=== PATIENT | male | born 1945 | race Caucasian/White ===

== ENCOUNTER 2024-01-14 05:06 | Observation (INO) ==
--- NOTE | 2023-12-20 11:12 | PAT Medication Instructions ---
Medication Instructions Date of Service December 20, 2023 Home Medications aspirin 81 mg tablet,delayed release 81 mg PO HS hydrochlorothiazide 12.5 mg tablet 12.5 mg PO QAM levothyroxine 25 mcg tablet (Synthroid) 25 mcg PO QAM potassium chloride 10 mEq tablet,extended release 10 meq PO QAM simvastatin 10 mg tablet 5 mg PO QAM escitalopram oxalate 10 mg tablet (Lexapro) 10 mg PO HS amlodipine 2.5 mg tablet 2.5 mg PO HS clonazepam 0.25 mg disintegrating tablet 0.25 mg PO QAM fluticasone propionate 50 mcg/actuation nasal spray,suspension 2 spray intranasal BID PRN Congestion DO NOT take the morning of surgery hydrochlorothiazide 12.5 mg tablet 12.5 mg PO QAM potassium chloride 10 mEq tablet,extended release 10 meq PO QAM Take morning of surgery With a small sip of water, OTHERWISE NOTHING TO EAT OR DRINK AFTER MIDNIGHT: levothyroxine 25 mcg tablet (Synthroid) 25 mcg PO QAM simvastatin 10 mg tablet 5 mg PO QAM clonazepam 0.25 mg disintegrating tablet 0.25 mg PO QAM fluticasone propionate 50 mcg/actuation nasal spray,suspension 2 spray intranasal BID PRN Congestion (if needed) Take evening before surgery aspirin 81 mg tablet,delayed release 81 mg PO HS (unless surgeon directed otherwise) escitalopram oxalate 10 mg tablet (Lexapro) 10 mg PO HS amlodipine 2.5 mg tablet 2.5 mg PO HS fluticasone propionate 50 mcg/actuation nasal spray,suspension 2 spray intranasal BID PRN Congestion (if needed) Other Notes If you have any questions please call us at [phone] or [phone] or [phone] or [phone]
--- NOTE | 2023-12-25 10:23 | Anesthesiology Consultation ---
Date of Service December 25, 2023 Assessment & Plan (1) Encounter for pre-operative examination: - will request copy of Dr. Snyder office visit 12/2023. Chart Review Chart Review: Pending: Refer to Additional Notes / Consult section and Patient seen in Pre Admission Testing Teaching & Discussion Pre-Anesthesia Teaching/Discussion Notes: Instructed NPO after midnight before surgery, except medications with 15 cc of water. Medication instructions provided according to the PAT guidelines. History Surgery Operation Date: 01/14/24 10:40 Proposed Procedures p Right Total Hip Arthroplasty - Luke Márquez MD Height/Weight Height: 6 ft Weight: 85.9 kg Allergies Allergy/AdvReac Type Severity Reaction Status Date / Time No Known Allergies Allergy Verified 12/19/23 12:30 Medications Home Medications Medication Instructions Recorded Confirmed Last Taken aspirin 81 mg tablet,delayed 81 mg PO HS 10/27/21 12/19/23 12/04/22 release hydrochlorothiazide 12.5 mg tablet 12.5 mg PO QAM 10/27/21 12/19/23 12/06/22 levothyroxine 25 mcg tablet 25 mcg PO QAM 10/27/21 12/19/23 12/06/22 (Synthroid) potassium chloride 10 mEq 10 meq PO QAM 10/27/21 12/19/23 12/06/22 tablet,extended release simvastatin 10 mg tablet 5 mg PO QAM 10/27/21 12/19/23 12/06/22 escitalopram oxalate 10 mg tablet 10 mg PO HS 03/22/22 12/19/23 12/04/22 (Lexapro) amlodipine 2.5 mg tablet 2.5 mg PO HS 12/13/23 12/19/23 Unknown clonazepam 0.25 mg disintegrating 0.25 mg PO QAM 12/13/23 12/19/23 Unknown tablet fluticasone propionate 50 2 spray intranasal BID PRN 12/19/23 12/19/23 Unknown mcg/actuation nasal Congestion spray,suspension Past Medical History Medical History (Updated 12/25/23 @ 10:29 by Marianela Souza PA-C) Acid reflux hx of, no meds Anxiety History of COVID-19 06/2021 - congestion, loss of smell; resolved History of kidney stones 1980s HLD (hyperlipidemia) HTN (hypertension) controlled, stable per pt Hypothyroidism Sleep apnea CPAP-occasional use Patient denies h/o stroke, seizures, heart attack, heart failure, DM, blood clots/DVTs or blood transfusions. Exercise / Class Metabolic Activity II 4-5 Yardwork/Stairs/Walk up hill (denies chest discomfort or shortness of breath with 1 FOS) Past Family History Family History Father Family history of reaction to anesthesia (potential) stroke during bladder surgery, pt's father was in 80's, Other No family history of adverse response to anesthesia Past Surgical History Surgical History History of cataract surgery bilat History of colonoscopy History of cystoscopy with stone extraction History of thumb surgery mult Hx of prostate biopsy benign S/P epidural steroid injection Past Anesthesia History No Hx of Anesthesia Complications and Other (father-stroke under general anesthesia) History of PONV No Hx of PONV and No Hx of Motion Sickness Social History Smoking Status: Never smoker Do You Dip or Chew Tobacco: No Hx Alcohol Use: Yes Alcohol type: wine alcohol intake frequency: 0-2 drinks per day Hx Substance Use: No substance use type: does not use Review of Systems Patient denies chest pain, shortness of breath, dyspnea on exertion, fever, chills, cough, wheezing, or palpitations. Physical Exam Vital Signs Vitals BP 131/86 P 70 TEMP 97.6 SP02 98% on RA RESP 18 Physical Patient resting comfortably in chair in no acute distress, alert and oriented, responding appropriately throughout visit Full cervical extension range of motion without pain TMD 3.5 finger breadths Mallampati Score 2 Dentition: several caps/crowns; denies chipped or loose teeth, implants or bridges Lungs: normal respiratory effort. Good air movement, clear throughout to auscultation, no adventitious breath sounds Cardiac: regular rate and rhythm, no murmurs noted Carotid arteries: negative bruit bilat Lab Results Anesthesia Preop Results Results Anesthesia Widget: WBC 5.19 K/ul (4.8-10.8) 12/25/23 Hgb 15.9 g/dl (14.0-18.0) 12/25/23 Hct 46.5 % (42.0-52.0) 12/25/23 Plt 197 K/uL (130-400) 12/25/23 Na Pending 12/25/23 K Pending 12/25/23 Cl Pending 12/25/23 CO2 Pending 12/25/23 BUN Pending 12/25/23 Creat Pending 12/25/23 Glucose Level Pending 12/25/23 PT 10.6 Seconds (9.0-12.0) 12/25/23 PTT 28 Seconds (21-31) 12/25/23 INR 1.0 (0.9-1.1) 12/25/23 Blood Type O Positive 12/25/23 Antibody Screen NEGATIVE 12/25/23 Testing Electrocardiogram Date: 12/25/23 NSR, rate 65 bpm Incomplete RBBB Chest X-Ray Date: 12/25/23 No acute cardiopulmonary findings.
--- NOTE | 2024-01-11 11:19 | History & Physical Report ---
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 They failed conservative treatment would like to have his hip replaced. Plan: We discussed treatment options with the patient including further conservative versus prevention. He is ready to have his hip fixed. I will go proceed with right total hip replacement. The risks and benefits of this procedure explained the patient include but not limited to DVT PE infection neurological and vascular bleeding palm pain limb range of motion test is fairly of symptoms incomplete relief of symptoms dislocation excetra. The patient understands and desires to proceed. Informed consent was obtained. His bone looks fairly osteopenic with a fairly wide canal. Will have a cemented stem available if were unable to get fixation with a uncemented stem. Plan on DVT prophylaxis including thigh-high teds, SCDs, and a baby aspirin twice a day. Will plan on staying overnight but hopeful discharge to home using the [facility]. History of Present Illness Chief Complaint: . Right hip and groin pain. Primary Care Provider: Tyesha Snyder DO . 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 He is about a 4 to 5-month history of increasing right hip pain discomfort that is gradually gotten worse over time. No particular injury. He was playing golf when this countable started. He is seen Dr. Armendariz and went through a course of therapy which seemed to help a little bit but is continued be limited by his hip pain. He is not been able to stay as active as he is like to do his groin pain. It radiates down to his side. No numbness. He would like to have his hip fixed. Allergies Allergy/AdvReac Type Severity Reaction Status Date / Time No Known Allergies Allergy Verified 12/19/23 12:30 Home Medications Medication Instructions Recorded Confirmed Type aspirin 81 mg tablet,delayed 81 mg PO HS 10/27/21 12/19/23 History release hydrochlorothiazide 12.5 mg tablet 12.5 mg PO QAM 10/27/21 12/19/23 History levothyroxine 25 mcg tablet 25 mcg PO QAM 10/27/21 12/19/23 History (Synthroid) potassium chloride 10 mEq 10 meq PO QAM 10/27/21 12/19/23 History tablet,extended release simvastatin 10 mg tablet 5 mg PO QAM 10/27/21 12/19/23 History escitalopram oxalate 10 mg tablet 10 mg PO HS 03/22/22 12/19/23 History (Lexapro) amlodipine 2.5 mg tablet 2.5 mg PO HS 12/13/23 12/19/23 History clonazepam 0.25 mg disintegrating 0.25 mg PO QAM 12/13/23 12/19/23 History tablet fluticasone propionate 50 2 spray intranasal BID PRN 12/19/23 12/19/23 History mcg/actuation nasal Congestion spray,suspension Past Med/Surg History Medical History Acid reflux hx of, no meds Sleep apnea CPAP-occasional use History of kidney stones 1980s Hypothyroidism Anxiety HLD (hyperlipidemia) HTN (hypertension) controlled, stable per pt History of COVID-19 06/2021 - congestion, loss of smell; resolved Surgical History S/P epidural steroid injection Hx of prostate biopsy benign History of cataract surgery bilat History of cystoscopy with stone extraction History of thumb surgery mult History of colonoscopy Family History Father Family history of reaction to anesthesia (potential) stroke during bladder surgery, pt's father was in 80's, Other No family history of adverse response to anesthesia Social History Smoking Status: Never smoker Second Hand Exposure: No; Do You Dip or Chew Tobacco: No; Hx Alcohol Use: Yes Alcohol type: wine Hx Substance Use: No Preferred Language: Albanian Communication Ability: Effective 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 Physical Exam . Physical examination reveals a pleasant healthy appearing middle-aged male. Looks younger than his stated age. Examination of the right hip reveal patient walks with a slightly antalgic gait. Leg lengths appear pretty equal. He does have limited hip motion with internal rotation to neutral which recreates pain. Negative straight leg raise. He is neurologically intact. Constitutional WD/WN, vitals as above Neck trachea midline, no thyromegaly Respiratory normal respiratory effort, lungs clear to auscultation Cardiovascular RRR, no murmur, no edema Gastrointestinal (Abdomen) normal bowel sounds, soft, nontender, no hepatosplenomegaly Results & Data Results & Data Laboratory Results . Diagnostic Findings . X-rays of the right hip were reviewed. Shows advanced hip arthritis. He is got near complete loss of the superior joint space. Is got cam type impingement. A little bit of osteopenia. PG Care Time/CCT Total # of Minutes Spent Total Time Spent with Patient: Total time spent is greater than 50% in coordination of care (as documented) at patient's floor/unit and/or counseling patient: Coding Level of Care Code None Diagnoses Arthritis of right hip M16.11
[2024-01-14] MEDS: ACETAMINOPHEN 500 MG TAB PO SCH ×2 (05:35→13:45)
[2024-01-14] MEDS: CeleBREX 200 MG CAP PO SCH (05:36)
[2024-01-14] MEDS: FAMOTIDINE 20 MG TAB PO SCH (05:36)
[2024-01-14] MEDS: LR 60ML/HR IV SCH (05:36)
[2024-01-14] MEDS: dexAMETHasone**PF** 10 MG/ML VIAL IV SCH (05:36)
[2024-01-14] MEDS: METOCLOPRAMIDE HCL 10 MG TABLET PO SCH (05:36)
[2024-01-14] MEDS: LR 500ML BOLUS, THEN 15ML/HR IV SCH (05:40)
[2024-01-14] MEDS ORDERED: BUPIVACAINE 0.5 % 5 MG/1 ML PF 10ML VIAL ONE (06:18)
[2024-01-14] MEDS ORDERED: fentaNYL citrate PF 100 MCG/2 ML VIAL ONE (06:38)
[2024-01-14] MEDS ORDERED: PROPOFOL IV EMULSION 10 MG/ML 20 ML VIAL IV ONE ×3 (06:39→06:40)
[2024-01-14] MEDS ORDERED: MIDAZOLAM HCL 1 MG/ML 2ML VIAL ONE ×2 (06:39→06:46)
[2024-01-14] MEDS ORDERED: ePHEDrine sulfate 50 MG/ML AMP ONE ×2 (06:40→07:42)
[2024-01-14] MEDS ORDERED: LIDOCAINE 2% 2 ML VIAL/AMP(20MG/ML) INFIL ONE (06:44)
[2024-01-14] MEDS ORDERED: ATROPINE SULFATE 0.1 MG/ML 10ML SYR IV PRN (06:45)
[2024-01-14] MEDS ORDERED: fentaNYL citrate PF 100 MCG/2 ML VIAL IV PRN (06:45)
[2024-01-14] MEDS ORDERED: ePHEDrine sulfate 50 MG/ML AMP IV PRN (06:45)
[2024-01-14] MEDS ORDERED: ONDANSETRON INJ 2 MG/ML 2 ML VIAL IV PRN ×2 (06:45→10:11)
[2024-01-14] MEDS: TRANEXAMIC ACID 1,000 MG **IV Pre-op IV SCH (06:46)
--- NOTE | 2024-01-14 06:51 | History & Physical Bridge Note ---
Date of Service January 14, 2024 History & Physical Bridge Note I have examined the patient, reviewed the History & Physical and in the interval since the performance of the History & Physical I have noted the following changes of clinical significance: no changes noted
[2024-01-14] MEDS: ceFAZolin 2000MG 2,000 MG/15 ML SYR IV SCH ×2 (06:57→14:30)
--- OUTSIDE RECORDS SUMMARY | 2024-01-14 07:01 | External Medical Summary | Continuity of Care Document ---
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 Name Role Phone Tyesha Snyder Primary Care Physician [phone] Encounter [facility] [id number] Date(s): 01/01/24 - 01/01/[address] [place] [address], [facility] [address] [place] [address] [phone] Encounter Diagnosis Elevated cholesterol(Discharge Diagnosis) - 01/01/24 ASHOK (generalized anxiety disorder)(Discharge Diagnosis) - 01/01/24 Hypertension(Discharge Diagnosis) - 01/01/24 Hypothyroid(Discharge Diagnosis) - 01/01/24 Right hip pain(Discharge Diagnosis) - 01/01/24 Pure hypercholesterolemia, unspecified(Final) - Generalized anxiety disorder(Final) - Essential (primary) hypertension(Final) - Hypothyroidism, unspecified(Final) - Pain in right hip(Final) - Discharge Disposition: Home or Self Care Attending Physician: DO Snyder Kristen M Referring Physician: DO Snyder Kristen M Allergies, Adverse Reactions, Alerts No Known Allergies Assessment and Plan Extracted from: Title:Office Visit Note Author:DO Snyder Kriste n M Date:01/01/24 1.Elevated cholesterol Chronic condition, stable Goal:Resolution Data:unique tests ordered: _ Plan: _check labs 2.ASHOK (generalized anxiety disorder) Chronic condition, stable Goal:Resolution Data:unique tests ordered: _ Plan: _klonipin refilled 3.Hypertension Chronic condition, stable Goal:Resolution Data:unique tests ordered: _ Plan: _well controlled 4.Hypothyroid Chronic condition, stable Goal:Resolution Data:unique tests ordered: _ Plan: _TSH and free t4 Immunizations Given and Recorded Vaccine Date Status Refusal Reason influenza virus vaccine, inactivated 08/18/22 Ja rded influenza virus vaccine, inactivated 07/30/17 Ja rded influenza virus vaccine, inactivated 09/17/16 Give n influenza virus vaccine, inactivated 08/30/15 Give n influenza virus vaccine, inactivated 08/18/14 Give n SARS-CoV-2 mRNA (ijfthntrnzt-dmtw-thc) 1 05/31/22 Recorded SARS-CoV-2 (COVID-19) mRNA BNT-162b2 vax 2 10/31/21 Recorded SARS-CoV-2 (COVID-19) mRNA BNT-162b2 vax 3 01/14/21 Recorded SARS-CoV-2 (COVID-19) mRNA BNT-162b2 vax 4 12/24/20 Recorded zoster vaccine, inactivated 5 07/26/20 Recorded pneumococcal 13-valent vaccine 6 08/04/18 Recorded pneumococcal 13-valent vaccine 11/01/15 Given tetanus/diphtheria/pertuss, acel (Tdap) 08/18/14 G iven zoster vaccine live 11/18/08 Recorded 1Result Comment: 2022-12-25: Historical information-source unspecified 2Result Comment: 2022-12-25: Historical information-source unspecified 3Result Comment: 2022-12-25: Historical information-source unspecified 4Result Comment: 2022-12-25: Historical information-source unspecified 5Result Comment: 2022-12-25: Historical information-source unspecified 6Result Comment: 2022-12-25: Historical information-source unspecified Medications amLODIPine 5 mg oral tablet Start: 09/11/22 7:58:00 EDT, 1 tab, PO, Daily Start Date: 09/11/22 Status: Ordered aspirin 81 mg oral delayed release tablet Start: 08/08/21 9:05:00 EDT, 1 tab, PO, Daily Start Date: 08/08/21 Status: Ordered escitalopram 10 mg oral tablet Start: 06/27/23 8:20:00 EDT, 1 tab, PO, Daily Start Date: 06/27/23 Status: Ordered hydrochlorothiazide 25 mg oral tablet Start: 08/18/14 8:52:00 EDT, 1 tab, PO, Daily Start Date: 08/18/14 Status: Ordered KlonoPIN 1 mg oral tablet Start: 12/31/23 14:56:00 EST, 1 tab, PO, bid, Disp# 60 tab, Refills: 5, prn, Pharmacy: [facility]/pharmacy#[id number] Start Date: 12/31/23 Status: Ordered levothyroxine 25 mcg (0.025 mg) oral tablet Start: 10/31/21 10:55:00 EST, 1 tab, PO, Daily Start Date: 10/31/21 Status: Ordered omega-3 polyunsaturated fatty acids 500 mg oral capsule Start: 01/17/15 8:08:00, 2 cap, PO, bid Start Date: 01/17/15 Status: Ordered potassium chloride 10 mEq oral capsule, extended release Start: 10/21/23 13:43:00 EST Start Date: 10/21/23 Status: Ordered simvastatin 5 mg oral tablet Start: 06/27/23 8:21:00 EDT, 1 tab, PO, qhs Start Date: 06/27/23 Status: Ordered Vitamin D3 Start: 11/01/15 14:05:00 EST, 1,000 Int_Unit =, PO, Daily Start Date: 11/01/15 Status: Ordered Mental Status 01/01/24 Barriers to Learning one year None evide nt Mandatory Health Literacy Documentation Yes Health Literacy Communication Barriers N ever Primary Language Bulgarian Problem List Condition Confirmation Course Effective Dates Status H ealth Status Informant Anxiety Confirmed Active Arthritis of hip Confirmed Active Calcium nephrolithiasis Confirmed Active Chronic low back pain Confirmed Active Sinus congestion Confirmed Active COVID-19 virus infection Confirmed Active Atypical nevus Confirmed Active Chronic GERD Confirmed Active ASHOK (generalized anxiety disorder) Confirmed Active Gynecomastia, male Confirmed Active Right hip pain Confirmed Active Elevated cholesterol Confirmed Active Hypertension Confirmed Active Hypothyroidism Confirmed Active Hypothyroid Confirmed Active Lightheadedness Confirmed Active Sarcopenia Confirmed Active OCD (obsessive compulsive disorder) Confirmed Active Obstructive apnea Confirmed Active Degenerative arthritis Confirmed Active Left knee pain Confirmed Active Prediabetes Confirmed Active Unspecified inflammatory spondylopathy, lumbosacral region 1 Confirmed Active Tobacco user Confirmed Active Hypovitaminosis D Confirmed Active 1See outside note 03/27/22 Diagnosis Diagnosis Type Effective Dates Health Status Clinical Service Informant Elevated cholesterol Discharge Diagnosis 01/01/24 Hypertension Discharge Diagnosis 01/01/24 Hypothyroid Discharge Diagnosis 01/01/24 Right hip pain Discharge Diagnosis 01/01/24 ASHOK (generalized anxiety disorder) Discharge Diagnosis 01/01/24 Procedures Procedure Date Related Diagnosis Body Site Status Upper GI endoscopy 1 06/26/18 Comp leted Colonoscopy 2010 Completed Repair of joint 2 2007 Complet ed Kidney stones 1988 Completed 1- Z-line regular, 44 cm from the incisors. - Non-obstructing schatzki ring - Esophageal mucosal chanes suggestive of eosinophilic esophagitis. Biopsied. - A single gastric polyp. Biopsied. - Gastritis - Normal examined duodenum. 2Bilateral thumbs Results Laboratory List Name Date Comprehensive Metabolic Panel (COMP META B PANEL) 01/01/24 Lipid Profile (LIPOPROTEINS) 01/01/24 Magnesium Level (MAGNESIUM) 01/01/24 T4, Free (T4, FREE) 01/01/24 Thyroid Stimulating Hormone (TSH) 4 Most recent to oldest [Reference Range]: 1 eGFR CKD-EPI [>60 mL/min/1.73 m2] 71 mL/ min/1.73 m2 1 (01/01/24 11:55 AM) Non-HDL 72 mg/dL 2 (01/01/24 11:55 AM) Estimated CrCl 62.96 mL/min (01/01/24 12:27 PM) Anion Gap [5-14 mmol/L] 6 mmol/L (01/01/24 11:55 AM) Alb [3.5-5.0 g/dL] 4.3 g/dL (01/01/24 11:55 AM) Alk Phos [38-126 unit/L] 67 unit/L (01/01/24 11:55 AM) ALT [<50 unit/L] 31 unit/L (01/01/24 11:55 AM) AST [15-46 unit/L] 63 unit/L *HI* (01/01/24 11:55 AM) BUN [7-20 mg/dL] 10 mg/dL (01/01/24 11:55 AM) Ca [8.4-10.2 mg/dL] 9.7 mg/dL (01/01/24 11:55 AM) Chol/HDL 3 (01/01/24 11:55 AM) Chol [125-200 mg/dL] 116 mg/dL *LOW* (01/01/24 11:55 AM) Cl- [96-107 mmol/L] 102 mmol/L (01/01/24 11:55 AM) HCO3 [22-30 mmol/L] 28 mmol/L (01/01/24 11:55 AM) Cret [0.70-1.30 mg/dL] 1.08 mg/dL (01/01/24 11:55 AM) Glu [74-106 mg/dL] 99 mg/dL (01/01/24 11:55 AM) HDL [>35 mg/dL] 44 mg/dL (01/01/24 11:55 AM) K [3.5-5.1 mmol/L] 3.8 mmol/L (01/01/24 11:55 AM) LDL Chol, Calculated [50-130 mg/dL] 48 m g/dL *LOW* (01/01/24 11:55 AM) Mg [1.6-2.3 mg/dL] 1.9 mg/dL 3 (01/01/24 11:55 AM) Na [137-145 mmol/L] 136 mmol/L *LOW* (01/01/24 11:55 AM) Free T4 [0.70-1.48 ng/dL] 0.84 ng/dL 4 (01/01/24 11:55 AM) T Bili [0.2-1.3 mg/dL] 0.7 mg/dL (01/01/24 11:55 AM) Prot [6.3-8.2 g/dL] 7.5 g/dL (01/01/24 11:55 AM) TG [<200 mg/dL] 120 mg/dL (01/01/24 11:55 AM) TSH [0.47-4.68 uIU/mL] 2.19 uIU/mL 5 (01/01/24 11:55 AM) 1Result Comment: Testing Performed By: Dept of Pathology [facility] Tad Campuzano, [address] [place], [place] [address] [place] [address] 2Result Comment: Testing Performed By: Dept of Pathology [facility] Tad Campuzano [facility] Tad Campuzano, [place] [address] 3Result Comment: Testing Performed By: Dept of Pathology [facility] Tad Campuzano, [facility] Tad Campuzano, [place] [address] 4Result Comment: Testing Performed By: Dept of Pathology [facility] Tad Campuzano, [facility] Tad Campuzano, [place] [address] 5Result Comment: Testing Performed By: Dept of Pathology [facility] Tad Campuzano, [address], [place] [address] Vital Signs Most recent to oldest [Reference Range]: 1 Patient Weight 85.4 kg (01/01/24 9:32 AM) Temperature [36.5-37.9 DegC] 36.7 DegC (01/01/24 9:32 AM) Blood Pressure 118/68mmHg (01/01/24 9:32 AM) Cuff Pulse Pressure 50 mmHg (01/01/24 9:32 AM) Social History Social History Type Response Tobacco Cigars, 1 per day. 1 Smoking Status Never smoked cigaret lynette Sex Male 1One cigar daily FCM Outpt Note * DO Snyder Kristen M: PERFORM Event Display: FCM Outpt Note Authored Date: Chief Complaint Pt here for 6 mo check History of Present Illness Pt presents for a 6 month check. He requested a klonopin BID--yesterday which was filled. Pt isgetting a total right hip surgery in 2 weeks. Review of Systems ROS: Denies FOOTE, visual changes, SOB, CP, N/V, no edema, fever, chills, dysuria, bowel changes Physical Exam Vitals & Measurements T:36.7C BP:118/68 SpO2:98% WT:85.4kg WT:85.400kg(Dosing) PHQ2 Data(Data Documented on:01/01/2024 09:32) Emotional health assessment NEGATIVE G: AAAOx3, NAD H: RR normal S1/S2 no M/R/G L: CTA b/l no r/r/w A: soft +bs nt nd E: no c/C/E b/l, pos distal pulses P: normal affect and insight, no homicidal/suicidal ideation Assessment/Plan 1.Elevated cholesterol Chronic condition, stable Goal:Resolution Data:unique tests ordered: _ Plan: _check labs 2.ASHOK (generalized anxiety disorder) Chronic condition, stable Goal:Resolution Data:unique tests ordered: _ Plan: _klonipin refilled 3.Hypertension Chronic condition, stable Goal:Resolution Data:unique tests ordered: _ Plan: _well controlled 4.Hypothyroid Chronic condition, stable Goal:Resolution Data:unique tests ordered: _ Plan: _TSH and free t4 Attestation I spent4 mintime in previsit planning including prepping note and chart review . I spent22 time in face to face interaction with patient concerning the issues that brought them in today. I spent4 min time in post visit planning including finishing note and depart process Total time spent today on patient visit30 min Problem List/Past Medical History Ongoing Anxiety Arthritis of hip Atypical nevus Calcium nephrolithiasis Chronic GERD Chronic low back pain COVID-19 virus infection Degenerative arthritis Elevated cholesterol ASHOK (generalized anxiety disorder) Gynecomastia, male Hypertension Hypothyroid Hypothyroidism Hypovitaminosis D Left knee pain Lightheadedness Obstructive apnea OCD (obsessive compulsive disorder) Prediabetes Right hip pain Sarcopenia Sinus congestion Tobacco user Unspecified inflammatory spondylopathy, lumbosacral region Historical Annual physical exam Reflux Tobacco user Procedure/Surgical History Upper GI endoscopy (06/26/2018)Colonoscopy (2010)Repair of joint (2007)Kidney stones (1987) Medications amLODIPine(amLODIPine 5 mg oral tablet), 5 mg= 1 tab, PO, Daily aspirin(aspirin 81 mg oral delayed release tablet), 81 mg= 1 tab, PO, Daily cholecalciferol(Vitamin D3), 1000 Int_Unit, PO, Daily clonazePAM(KlonoPIN 1 mg oral tablet), 1 mg= 1 tab, PO, bid, 5 refills escitalopram(escitalopram 10 mg oral tablet), 10 mg= 1 tab, PO, Daily hydroCHLOROthiazide(hydrochlorothiazide 25 mg oral tablet), 25 mg= 1 tab, PO, Daily levothyroxine(levothyroxine 25 mcg (0.025 mg) oral tablet), 25 mcg= 1 tab, PO, Daily omega-3 polyunsaturated fatty acids(omega-3 polyunsaturated fatty acids 500 mg oral capsule), 1000 mg= 2 cap, PO, bid potassium chloride(potassium chloride 10 mEq oral capsule, extended release) simvastatin(simvastatin 5 mg oral tablet), 5 mg= 1 tab, PO, qhs Allergies NKA Social History Smoking Status Never smoked cigarettes Alcohol Type:Wine Frequency:Daily - Comments: One glass of wine daily 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 Sexual Sexually active:Yes Uses condoms:No Substance Abuse - Denies Substance Abuse Tobacco Type:Cigars Tobacco use per day:1 - Comments: One cigar daily Family History Heart attack: MGF and PGM. Stroke: Mother and Father. Health Status Family Member(s) Immunizations Vaccine Date Status influenza virus vaccine, inactivated 08/2022 Recorded SARS-CoV-2 mRNA (ekjzafxrwwr-gaes-qqb) 05/31/2022 Recorded Comments : 2022-12-25: Historical information-source unspecified SARS-CoV-2 (COVID-19) mRNA BNT-162b2 vax 10/31/2021 Recorded Comments : 2022-12-25: Historical information-source unspecified SARS-CoV-2 (COVID-19) mRNA BNT-162b2 vax 01/14/2021 Recorded Comments : 2022-12-25: Historical information-source unspecified SARS-CoV-2 (COVID-19) mRNA BNT-162b2 vax 12/24/2020 Recorded Comments : 2022-12-25: Historical information-source unspecified zoster vaccine, inactivated 07/26/2020 Recorded Comments : 2022-12-25: Historical information-source unspecified pneumococcal 13-valent vaccine 08/04/2018 Recorded Comments : 2022-12-25: Historical information-source unspecified influenza virus vaccine, inactivated 07/30/2017 Recorded influenza virus vaccine, inactivated 09/17/2016 Given pneumococcal 13-valent vaccine 11/01/2015 Given influenza virus vaccine, inactivated 08/30/2015 Given tetanus/diphtheria/pertuss, acel (Tdap) 08/18/2014 Given influenza virus vaccine, inactivated 08/18/2014 Given zoster vaccine live 11/18/2008 Recorded Recommendations Health Maintenance Pending(in the next year) OverDue Medicare Annual Wellness Visit due05/05/20and every 1year Adult Influenza Vaccine due05/17/23and every 1year Due Adult Social Determinants of Health Screening due01/01/24Unknown Frequency Hepatitis C Screening due01/01/24One-time only Pneumococcal Vaccine Older Adults due01/01/24One-time only Shingles Vaccine due01/01/24One-time only Satisfied(in the past 1 year) Satisfied Body Mass Index on10/21/23.Satisfied by KENTON Lucero Kelley Lipid Screening on06/27/23.Satisfied by Contributor_system, [employer] Electronic Signature on File Electronically Reviewed/Signed by: Tyesha Snyder DO Author Signature Dt/Tm:01/01/2024 10:02 AM [facility] Patient Care team information Care Team Personnel Name: DO Snyder Kristen M Position: Physician - Family Med Member Role: Primary Care Provider Address: Address: [address] [place] [address] [address] [place] [address] Care Team Related Persons Name: ELMO BECKHAM Address: home [address] [facility], [place] [id number] Name: ELMO BECKHAM Address: [facility] Address: home [address] [facility], [place] [id number]
--- OUTSIDE RECORDS SUMMARY | 2024-01-14 07:01 | External Medical Summary | Continuity of Care Document ---
Author Name Unknown Organization [address] Address [address] [place] [address] [address] [place], [place] [id number] Care Team Providers Care [place] Commissioner Name Role Phone Tyesha Snyder Primary Care Physician [phone] [id number] Date(s): 12/31/23 - 12/31/[address] [place] [address], [address] [place] [address] [phone] Discharge Disposition: Home or Self Care Attending Physician: DO Snyder Kristen M Referring Physician: DO Snyder Kristen M Allergies, Adverse Reactions, Alerts No Known Allergies Immunizations Given and Recorded Vaccine Date Status Refusal Reason influenza virus vaccine, inactivated 08/18/22 Ja rded influenza virus vaccine, inactivated 07/30/17 Ja rded influenza virus vaccine, inactivated 09/17/16 Give n influenza virus vaccine, inactivated 08/30/15 Give n influenza virus vaccine, inactivated 08/18/14 Give n SARS-CoV-2 mRNA (edxiuoosooc-anby-voz) 1 05/31/22 Recorded SARS-CoV-2 (COVID-19) mRNA BNT-162b2 [...] Disp# 60 tab, Refills: 5, prn, Pharmacy: [facility]/pharmacy#[id number] Start Date: 12/31/23 Status: Ordered levothyroxine 25 [...] PO, Daily Start Date: 11/01/15 Status: Ordered Problem List Condition Confirmation Course Effective Dates [...] D Confirmed Active 1See outside note 03/27/22 Procedures Procedure Date Related Diagnosis Body Site Status Upper GI endoscopy 1 06/26/18 Comp leted Colonoscopy 2010 Completed Repair of joint 2 2007 Complet ed Kidney stones 1987 Completed 1- Z-line regular, 44 cm from the incisors. - Non-obstructing schatzki ring - Esophageal mucosal chanes suggestive of eosinophilic esophagitis. Biopsied. - A single gastric polyp. Biopsied. - Gastritis - Normal examined duodenum. 2Bilateral thumbs Social History Social History Type Response Tobacco Cigars, 1 per day. 1 Smoking Status Never smoked cigaret lynette Sex Male 1One cigar daily Patient Care team information Care Team Personnel Name: DO Snyder Kristen M Position: Physician - Family Med Member Role: Primary Care Provider Address: Address: [address] [place] [address], [place] [address] [place] Care Team Related Persons Name: ELMO BECKHAM Address: [place] Address: home [address] [facility], [place] [id number] Name: ELMO BECKHAM Address: home [address] [facility], [place] [phone]
[2024-01-14] MEDS ORDERED: PHENYLEPHRINE HCL 10 MG/ML VIAL ONE (07:12)
[2024-01-14] MEDS: EPINEPHrine INJ 1 MG/ML AMP ONE (07:39)
[2024-01-14] MEDS: BUPIVACAINE 0.5 % 5 MG/1 ML MPF 30ML VIAL ONE (07:39)
--- NOTE | 2024-01-14 08:45 | Operative Report ---
PG Post Operative Report Pre & Post Diagnosis Operation Date: 01/14/24 07:00 Pre-Op Diagnosis: Right Hip Advanced Degenrative Joint Disease Post-Op Diagnosis: Right Hip Advanced Degenrative Joint Disease I identified the patient and participated in the time-out.: Yes Procedure Operation Date: 01/14/24 07:00 Actual Procedures p Right Total Hip Arthroplasty, Cemented(Right) - Luke Márquez MD Surgeon Luke Márquez MD Freight Coordinator Godwin Constantino PA-C Estimated Blood Loss 200 Findings Consistent with Post-Op Diagnosis Operative findings revealed advanced left hip arthritis. Grade 4 bziz-df-iuik disease of the femoral head. He had a moderate-sized joint effusion. Not much osteophyte formation. His bone looks kind of dark and somewhat necrotic in appearance. Specimens Left femoral head sent for pathology. 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 It is really affecting his lifestyle and his ability to maintain an active lifestyle. He failed conservative measures. X-rays show advanced right hip arthritis. He elected proceed with total hip arthroplasty. Description of Procedure Operative implants consist of: 1 Biomet G7 size 58 mm acetabular shell. 2. 6.5 cancellous acetabular screws 1 of 35 mm length 1 to 30 mm length. 3. [place]field hole cooker mechanic. 4. Highly cross-linked polyethylene liner with a 58 mm outer diam and 40 mm inner diameter. 5. DePuy Elliott size 4 high offset cemented femoral stem. 6. +8.5/40 mm metal articular ball. The patient was taken to the operating, identified, placed on the operating table in the supine position but all contact areas were appropriately padded. IV antibiotic 5 by anesthesia team. Spinal anesthetic implemented in the holding area. Patient was then placed in the left lateral decubitus position. A roll was placed. Distal Birkett position was used for positioning. The right hip and leg were then prepped and draped in usual sterile fashion. A posterolateral approach to the right hip was then performed to a curvilinear incision centered over the greater trochanter. Sharp dissection carried through subcutaneous tissue down of the IT band gluteal fascia. The IT band gluteal fascia were incised longitudinally in line with skin incision. The underlying greater bursa was excised. The piriformis and external rotators along with the posterior joint capsule were then released from the posterior aspect hip as a single layer. Hip was internally rotated and dislocated. A femoral neck osteotomy cut was made with Final Cut 14 mm above the lesser trochanter. Femoral head was removed and sent for pathology. The femur was retracted anteriorly. Attention drawn the acetabulum. The acetabular labrum was excised. The pulmonary fat was excised. Sequential reaming the acetabular was then performed beginning with a size 49 and progressing up to 57. I did ream a little bit with a 58 reamer and then placed a 58 mm Biomet G7 acetabular shell in about 40 degrees lateral opening and 20 degrees of anteversion. Was fixed with two 6.5 cancellous acetabular screws. A trial liner was placed. Attention drawn the femur. Proximal femur was entered with a Stunable cutter followed by canal finder lateralizing reamer. This cancellous bone was not of great quality so elected to use a cemented stem. I then broached beginning with size 1 and progressing up to a 4. We had pretty good fit a 4. I trialed the hip. With the +5 articular ball the hip was stable but the soft tissue tension was still pretty lax and we elected to use a +8.5 articular ball. We used a 40 mm head in order to maximize stability. Hip was fully stable in full extension and external rotation and flexion to 90 degrees internal rotation over 50 degrees. Leg lengths appeared equal. Soft tissue send tension seemed to be improved. We elect to place these implants. All trial implants were removed. An apex hole senior controls engineer was placed. Highly cross-linked polyethylene liner was placed. A large cement restrictor was placed. The canal was irrigated extensively. A double batch Palacos G cement was mixed then injected in the canal. A Elliott size 4 high offset femoral stem with a distal centralizer was placed. All extraneous cement was removed. Once the cement hardened a +8.5/40 mm metal articular ball was placed. Hip was located and once again found to be stable. Attention was then drawn toward closing. The wounds irrigated with coconuts pulsatile lavage solution. I did inject locally with 60 cc of percent Marcaine with epinephrine. The posterior capsule Rotators then repaired through drill holes in the posterior trochanter with #2 Tycron suture. The IT band gluteal fascia then closed in 1 PDS suture running fashion. Subcutaneous tissues then closed with 2 layers of the deep layer #1 Vicryl suture subcutaneous tissue with 2 Dexon suture in a buried interrupted fashion. Skin was closed skin soraya. Leg was then cleaned and dried a sterile dressing with Xeroform, 4 fours, sterile ABD pad and foam tape was applied. Patient then transferred to the recovery room in stable condition. Patient tolerated the procedure well and there were no complications. Godwin Constantino, my physician trust operations assistant, was present for the entire procedure. His assistance was essential and required for appropriate patient positioning, prepping and draping, surgical exposure, performing the technical details of the operation, placement the implants, closure of the wound, and placement of the sterile bandage. I attest to the content of the Intraoperative Record and any orders documented therein. Any exceptions are noted below.
--- NOTE | 2024-01-14 09:23 | XRay Report ---
XR hip 1V RT w pelvis CLINICAL HISTORY: Postoperative evaluation. COMPARISON: Right hip radiographs December 13, 2023. FINDINGS: Alignment of the total right hip arthroplasty is anatomic. There is no periprosthetic frac ture or unexpected radiopaque foreign body. There are acetabular screws and skin soraya. IMPRESSION: Expected findings following total right hip arthroplasty. ACT 112: Negative or not required by law. Electronically signed by: Stevenson Sumner M.D. 01/14/2024 9:22 AM
[2024-01-14] MEDS ORDERED: METOCLOPRAMIDE HCL INJ 5 MG/ML 2 ML VIAL IV PRN (10:11)
[2024-01-14] MEDS ORDERED: MAGNESIUM HYDROXIDE SUSP 30 ML UDC PO PRN (10:11)
[2024-01-14] MEDS ORDERED: HYDROmorphone INJ 0.5 MG/0.5 ML SYR IV PRN (10:11)
[2024-01-14] MEDS ORDERED: FLUTICASONE PROPIONATE NA SPR 16 GM BTL NAE PRN (10:11)
[2024-01-14] MEDS ORDERED: NALOXONE HCL 0.4 MG/1 ML VIAL/CARP IV PRN (10:11)
[2024-01-14] MEDS ORDERED: ALUMINUM/MAGNESIUM SUSP 30 ML UDC PO PRN (10:11)
[2024-01-14] MEDS ORDERED: bisacodyL 10 MG SUPP PR PRN (10:11)
[2024-01-14] MEDS: SODIUM CHLORIDE 0.9% 1,000 ML IV SCH (10:20)
[2024-01-14] MEDS: LEVOTHYROXINE SODIUM 25 MCG TABLET PO SCH (11:35)
[2024-01-14] MEDS: SIMVASTATIN 5 MG TAB PO SCH (11:35)
[2024-01-14] MEDS: MULTIVITAMIN TAB PO SCH (11:35)
[2024-01-14] MEDS: DOCUSATE SODIUM 100 MG CAP PO SCH (11:35)
[2024-01-14] MEDS: clonazePAM 0.25 MG TAB PO SCH (11:35)
[2024-01-14] MEDS: TAMSULOSIN HCL 0.4 MG CAP PO SCH (11:35)
[2024-01-14] MEDS: SENNA 8.6 MG TAB PO SCH ×2 (11:35→21:27)
[2024-01-14] MEDS: hydroCHLOROthiazide 25 MG TAB PO SCH (11:36)
[2024-01-14] MEDS: ASPIRIN 81 MG ECTAB PO SCH (11:36)
[2024-01-14] MEDS: POTASSIUM CHLORIDE 10 MEQ TABCR PO SCH (11:37)
[2024-01-14] MEDS: KETOROLAC TROMETHAMINE 15 MG/ML VIAL IV SCH (11:37)
--- NOTE | 2024-01-14 13:31 | Anesthesiology Progress Note ---
Date of Service January 14, 2024 Anesthesia Post Procedure Vital Signs Vital Signs: Temp Pulse Pulse Resp BP Pulse Ox O2 Del Method 01/14/24 12:00 36.6 C 80 16 111/76 95 Room Air 01/14/24 10:50 36.3 C L 85 18 116/77 94 Room Air 01/14/24 10:40 82 20 120/81 95 Room Air 01/14/24 10:10 36.4 C L 75 14 121/77 94 Room Air 01/14/24 10:00 80 13 119/72 97 Room Air 01/14/24 09:50 76 14 118/77 95 Room Air 01/14/24 09:40 78 14 119/80 96 Room Air 01/14/24 09:30 76 15 122/77 94 Room Air 01/14/24 09:20 73 14 123/75 94 Room Air 01/14/24 09:10 75 15 123/76 95 Room Air 01/14/24 09:00 75 14 117/74 95 Room Air 01/14/24 08:50 74 19 111/76 100 Room Air 01/14/24 08:40 74 14 116/71 99 Oxymask 01/14/24 08:32 36.2 C L 74 16 108/69 99 Oxymask 01/14/24 05:31 36.5 C 62 18 129/83 95 Room Air O2 Flow Rate 01/14/24 12:00 01/14/24 10:50 01/14/24 10:40 01/14/24 10:10 01/14/24 10:00 01/14/24 09:50 01/14/24 09:40 01/14/24 09:30 01/14/24 09:20 01/14/24 09:10 01/14/24 09:00 01/14/24 08:50 01/14/24 08:40 6 01/14/24 08:32 6 01/14/24 05:31 Transfer of Care Handoff Completed per policy Notes Mental Status: alert / awake / arousable and participated in evaluation Patient Amnestic to Procedure: Yes Nausea / Vomiting: adequately controlled Pain: adequately controlled Airway Patency, RR, SpO2: stable & adequate BP & HR: stable & adequate Hydration State: stable & adequate Neuraxial Anesthesia: was administered and sensory block is resolving Anesthetic Complications: no major complications apparent and Pt Satisfied with anesthetic care
[2024-01-14] MEDS: TRANEXAMIC ACID / 0.7% NACL 1,000 MG/100 ML BAG IV SCH (14:30)
[2024-01-14] MEDS: ASCORBIC ACID 500 MG TAB PO SCH (16:36)
[2024-01-14] MEDS: traMADol HCL 50 MG TABLET PO PRN (18:41)
[2024-01-14] MEDS: ESCITALOPRAM OXALATE 10 MG TAB PO SCH (21:26)
[2024-01-14] MEDS: amLODIPine BESYLATE 5 MG TAB PO SCH (21:31)
[2024-01-15] MEDS: dexAMETHasone 10 MG in SYRINGE 0 ML IV SCH (08:04)
[2024-01-15 08:53] LABS: Basophils # (auto) 0.03 K/uL (0.00-0.20); Basophils % (auto) 0.3 %; Eosinophils # (auto) 0.05 K/uL (0.00-0.50); Eosinophils % (auto) 0.5 %; Hematocrit (blood only) 37.3 % (42.0-52.0); Hemoglobin 12.5 g/dl (14.0-18.0); Immature Granulocytes # (auto) 0.06 K/uL (0.01-0.20); Immature Granulocytes % (auto) 0.6 %; Lymphocytes # (auto) 2.01 K/uL (1.20-3.40); Lymphocytes % (auto) 18.5 %; Mean Corpuscular Hemoglobin 29.8 pg (25.0-34.0); Mean Corpuscular Hgb Conc 33.5 g/dL (32.0-36.0); Mean Corpuscular Volume 88.8 fL (80.0-100.0); Mean Platelet Volume 9.3 fL (9.4-12.4); Monocytes # (auto) 1.18 K/uL (0.11-0.59); Monocytes % (auto) 10.9 %; Neutrophils # (auto) 7.51 K/uL (1.40-6.50); Neutrophils % (auto) 69.2 %; Platelet Count 151 K/uL (130-400); RDW Coefficient of Variation 13.2 % (11.5-14.5); RDW Standard Deviation 42.6 fL (36.4-46.3); White Blood Count 10.84 K/ul (4.8-10.8)
[2024-01-15 09:10] LABS: BUN Creatinine Ratio 13.3 (10-20); Calcium 9.1 mg/dl (8.6-10.3); Creatinine Clr Calc Pharmacy 81.8 ml/min; Est GFR (African American) 98.4 ml/min; Est GFR (Non-African American) 84.9 ml/min; Potassium 3.7 mmol/L (3.5-5.1)
--- NOTE | 2024-01-15 13:45 | Surgery Progress Note ---
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 Pain is controlled. Hips located. He is neurologically intact. Therapy went pretty well please open to go home. Plan: 1. DVT prophylaxis including thigh-high teds, SCDs, aspirin twice a day. 2. PT/OT. Weight-bear as tolerated right total hip protocol. Does [place] hip precautions. 3. Pain control doing okay with current pain regimen. 4. Disposition plan is to discharge to home today. He is can have home health and follow-up in clinic in 2 weeks. Admission and Anticipated Discharge Date Admission Date: January 14, 2024 Subjective 78-year-old gentleman now postop day 1 from a right hybrid total hip replacement. He is doing quite well. Pain is controlled. A pretty good night. Therapy is going well. No chest pain or shortness of breath. He is hoping to go home. Physical Exam Physical Exam: Physical examination was a pleasant elderly gentleman. He is sitting up in his bedside chair looks pretty comfortable. Examination of the hip reveals the dressing be clean dry and intact. Leg lengths are equal. Thigh is soft and supple. He is neurologically intact he can dorsiflex and plantarflex his foot appropriately. Respiratory: normal respiratory effort, lungs clear to auscultation Cardiovascular: RRR, no murmur, no edema Gastrointestinal (Abdomen): normal bowel sounds, soft, nontender, no hepatosplenomegaly Results & Data Vital Signs (Past 12 Hours) Vital Signs Temp Pulse Resp BP Pulse Ox O2 Del Method 01/15/24 07:54 36.4 C L 86 17 117/73 96 Room Air 01/15/24 04:19 37.2 C 69 14 117/74 97 Room Air Laboratory Results Hemoglobin is 12.5. Hematocrit is 37.3. Electrolytes are stable. PG Care Time/CCT Total # of Minutes Spent Total Time Spent with Patient: Total time spent is greater than 50% in coordination of care (as documented) at patient's floor/unit and/or counseling patient: Coding Level of Care Code 62189 Post Operative Follow-Up Diagnoses Status post right hip replacement Z96.641
--- NOTE | 2024-01-17 09:01 | Discharge Summary ---
Date of Service January 17, 2024 Discharge Data Procedures Performed Operation Date: 01/14/24 07:00 Actual Procedures p Right Total Hip Arthroplasty, Cemented(Right) - Luke Márquez MD Hospital Course (1) Status post right hip replacement: This is a 78 year old patient admitted on 01/14/24 and underwent total hip arthroplasty. He tolerated the procedure well and there were no complications. Transferred to the PACU post op and later to the orthopedic floor for further care. He was given ancef for antibiotic prophylaxis. He was also given FRANCISCO J stockings, SCDs, and aspirin for DVT prophylaxis. Hemoglobin, hematocrit, and vital signs were monitored during his hospital stay and remained stable. Did not require any blood transfusions. There were no complications during his hospital stay. By post op day #1 the patient was tolerating a regular diet, pain was reasonably controlled with oral pain medicine, and he was participating in physical therapy. On post op day #1 the patient was discharged home and set up with home health care. He was given printed discharge instructions including prescriptions for extra strength tylenol, aspirin, ketorolac, zofran, senokot, flomax, and tramadol. Continue hip precautions. Continue physical therapy, weight bearing as tolerated. Continue FRANCISCO J stockings. Follow up approximately 2 weeks post op or sooner if there are problems or concerns. Coding Level of Care Code None Diagnoses Status post right hip replacement Z96.641
== END 2024-01-15 10:38 | disposition home health service (06) ==
LOC: ASU 05:06 → PACUINP 05:06 → 3N 11:14